=== PATIENT | female | born 1950 | race Caucasian/White ===

== ENCOUNTER 2020-07-02 13:11 | Inpatient (IN) ==
[2020-07-02] MEDS ORDERED: Prochlorperazine 10 MG/2 ML VIAL IVP ONE (13:24)
[2020-07-02 13:41] LABS: Hemoglobin 10.5 g/dL (11.5-15.4)
[2020-07-02 13:43] LABS: Basophils % 0.4 %; Eosinophils % 0.7 %; Hematocrit 34.6 % (35.3-44.9); Immature Granulocytes % 0.7 % (0-4); Immature Platelets 5.6 % (1.1-6.1); Lymphocytes # 0.9 K/mcL (0.6-4.6); Lymphocytes % 16.4 %; Mean Corpuscular HGB Conc 30.3 g/dL (31.6-35.5); Mean Corpuscular Hemoglobin 34.9 pg (28.0-33.3); Mean Platelet Volume 11.2 fL (9.4-12.4); Monocytes # 0.4 K/mcL (0.0-1.3); Monocytes % 6.3 %; Neutrophils # 4.2 K/mcL (1.6-8.9); Red Blood Count 3.01 M/mcL (3.82-4.97); Red Cell Distribution Width 15.6 % (11.5-14.5); Segmented Neutrophils % 75.5 %; White Blood Count 5.6 K/mcL (4.3-11.1)
[2020-07-02 13:54] LABS: INR 1.7; Prothrombin Time 19.2 Seconds (9.4-12.1)
[2020-07-02 14:03] LABS: Platelet Count 63 K/mcL (140-400)
[2020-07-02 14:09] LABS: Macrocytosis Present (Not Present); Platelet Estimate Decreased (Normal)
[2020-07-02 14:15] LABS: Alanine Aminotransferase 19 Units/L (7-52); Albumin 3.7 g/dL (3.5-5.7); Albumin/Globulin Ratio 1.3 (1.1-2.2); Alkaline Phosphatase 178 Units/L (34-104); BUN/Creatinine Ratio 21 (6-26); Bilirubin,Total 0.4 mg/dL (0.3-1.0); Blood Urea Nitrogen 29 mg/dL (8-23); Calcium 9.1 mg/dL (8.6-10.3); Carbon Dioxide 27 mEq/L (23-29); Chloride 103 mEq/L (98-107); Globulin 2.9 g/dL (2.4-3.5); Glucose 87 mg/dL (70-105); Osmolality,Calculated 291 (280-300); Potassium 4.3 mEq/L (3.5-5.1); Sodium 138 mEq/L (136-145); Total Protein 6.6 g/dL (6.4-8.9); Troponin I < 0.03 ng/mL (< 0.04); eGFR For African Americans 47 (> 60); eGFR For Non-African Americans 38 (> 60)
[2020-07-02 14:35] LABS: Aspartate Amino Transferase 24 Units/L (13-39)
[2020-07-02] MEDS ORDERED: *HR* Dextrose 50 % in Water (Vial) 50 ML VIAL IVP PRN (16:25)
[2020-07-02] MEDS ORDERED: Naloxone 0.4 MG/ML INJ IVP PRN (16:25)
[2020-07-02] MEDS ORDERED: Acetaminophen 325 MG TABLET PO PRN (16:25)
[2020-07-02] MEDS ORDERED: Dextrose Gel 15 GM/37.5 ML TUBE PO PRN ×2 (16:25)
[2020-07-02] MEDS ORDERED: D5% in Water 1,000 ML IVC PRN (16:25)
[2020-07-02] MEDS: Insulin LISPRO 300 UNITS/3 ML VIAL SQ SCH ×2 (18:40→20:19)
[2020-07-03 06:04] LABS: Red Cell Distribution Width 15.7 % (11.5-14.5)
[2020-07-03 06:06] LABS: Hematocrit 31.5 % (35.3-44.9); Hemoglobin 9.5 g/dL (11.5-15.4); Immature Platelets 4.4 % (1.1-6.1); Mean Corpuscular HGB Conc 30.2 g/dL (31.6-35.5); Mean Corpuscular Hemoglobin 34.7 pg (28.0-33.3); Mean Platelet Volume 11.2 fL (9.4-12.4); Red Blood Count 2.74 M/mcL (3.82-4.97); White Blood Count 5.2 K/mcL (4.3-11.1)
[2020-07-03 06:27] LABS: Albumin 3.2 g/dL (3.5-5.7); Albumin/Globulin Ratio 1.3 (1.1-2.2); Bilirubin,Total 0.3 mg/dL (0.3-1.0); Calcium 8.6 mg/dL (8.6-10.3); Globulin 2.4 g/dL (2.4-3.5); Potassium 4.4 mEq/L (3.5-5.1); Total Protein 5.6 g/dL (6.4-8.9)
[2020-07-03] MEDS ORDERED: *HR* OxyCODONE/APAP 10/325 TABLET PO PRN (07:21)
[2020-07-03] MEDS ORDERED: Ondansetron ODT 4 MG TAB.RAPDIS PO PRN (07:21)
[2020-07-03] MEDS: allopurinoL 300 MG TABLET PO SCH (09:32)
[2020-07-03] MEDS: Ascorbic Acid 500 MG TABLET PO SCH ×2 (09:32→20:10)
[2020-07-03] MEDS: *HR* Digoxin 0.125 MG TABLET PO SCH (09:32)
[2020-07-03] MEDS: Cyanocobalamin (B-12) 1,000 MCG TABLET PO SCH (09:33)
[2020-07-03] MEDS: Magnesium Oxide 400 MG TABLET PO SCH ×2 (09:33→20:10)
[2020-07-03] MEDS: Gabapentin 100 MG CAPSULE PO SCH ×2 (09:33→20:10)
[2020-07-03] MEDS: Metoprolol XL (24 HR) Succ 25 MG TAB.ER.24H PO SCH (09:33)
[2020-07-03] MEDS: Furosemide 20 MG TABLET PO SCH (09:33)
[2020-07-03] MEDS: Insulin LISPRO 300 UNITS/3 ML VIAL SQ SCH ×4 (09:33→20:50)
[2020-07-03] MEDS: IXAZOMIB CITRATE 2.3 MG PO SCH (09:34)
[2020-07-03] MEDS: Prenatal Vit/FA 1 EACH TABLET PO SCH (09:34)
[2020-07-03] MEDS ORDERED: Aminoglycoside Consult 1 EACH MC ONE (13:32)
[2020-07-03] MEDS: predniSONE 20 MG TABLET PO SCH (16:10)
[2020-07-03] MEDS ORDERED: *HR* Warfarin 5 MG TABLET PO ONE (18:00)
[2020-07-03] MEDS ORDERED: Warfarin perPT PO SCH (18:00)
[2020-07-03] MEDS ORDERED: Doxepin Hcl 10 MG PO SCH (21:00)
[2020-07-03] MEDS ORDERED: Insulin NPH/REG 70/30 100 UNIT/ML (x5UNIT) SQ SCH (21:00)
[2020-07-04 07:06] VITALS: BP 151/85
[2020-07-04] MEDS: predniSONE 20 MG TABLET PO SCH (07:44)
[2020-07-04] MEDS: Gabapentin 100 MG CAPSULE PO SCH (07:44)
[2020-07-04] MEDS: Furosemide 20 MG TABLET PO SCH (07:44)
[2020-07-04] MEDS: Prenatal Vit/FA 1 EACH TABLET PO SCH (07:44)
[2020-07-04] MEDS: Metoprolol XL (24 HR) Succ 25 MG TAB.ER.24H PO SCH (07:44)
[2020-07-04] MEDS: Ascorbic Acid 500 MG TABLET PO SCH (07:44)
[2020-07-04] MEDS: Magnesium Oxide 400 MG TABLET PO SCH (07:44)
[2020-07-04] MEDS: Cyanocobalamin (B-12) 1,000 MCG TABLET PO SCH (07:44)
[2020-07-04] MEDS: *HR* Digoxin 0.125 MG TABLET PO SCH (07:44)
[2020-07-04] MEDS: IXAZOMIB CITRATE 2.3 MG PO SCH (07:45)
[2020-07-04] MEDS: allopurinoL 300 MG TABLET PO SCH (07:45)
[2020-07-04] MEDS: Insulin LISPRO 300 UNITS/3 ML VIAL SQ SCH (07:45)
[2020-07-04] MEDS ORDERED: Insulin NPH/REG 70/30 100 UNIT/ML (x5UNIT) SQ SCH (09:00)
[2020-07-04 10:23] LABS: INR 1.4
[2020-07-04] MEDS ORDERED: *HR* Warfarin 5 MG TABLET PO ONE (18:00)
== END 2020-07-04 13:33 | disposition home or self-care (01) | DRG 103 ==
LOC: EMEROOARM 13:11 → 3BNU 13:11
PROVIDERS: ADMIT Family Medicine; ATTEND Family Medicine

== ENCOUNTER 2021-01-01 10:35 | Observation (INO) ==
[2021-01-01 11:24] LABS: Basophils # 0.1 K/mcL (0.0-0.2); Basophils % 0.6 %; Eosinophils % 0.3 %; Hematocrit 37.6 % (35.3-44.9); Hemoglobin 11.6 g/dL (11.5-15.4); Immature Granulocytes % 0.6 % (0-4); Lymphocytes % 8.1 %; Mean Corpuscular HGB Conc 30.9 g/dL (31.6-35.5); Mean Corpuscular Hemoglobin 34.5 pg (28.0-33.3); Mean Corpuscular Volume 111.9 fL (83.0-100.0); Mean Platelet Volume 10.7 fL (9.4-12.4); Monocytes # 0.7 K/mcL (0.0-1.3); Monocytes % 7.1 %; Neutrophils # 8.7 K/mcL (1.6-8.9); Platelet Count 102 K/mcL (140-400); Red Blood Count 3.36 M/mcL (3.82-4.97); Red Cell Distribution Width 14.3 % (11.5-14.5); Segmented Neutrophils % 83.3 %; White Blood Count 10.4 K/mcL (4.3-11.1)
[2021-01-01 11:34] LABS: INR 1.7; Prothrombin Time 19.6 Seconds (9.4-12.1)
[2021-01-01 11:48] LABS: BUN/Creatinine Ratio 19 (6-26); Blood Urea Nitrogen 22 mg/dL (8-23); Calcium 9.4 mg/dL (8.6-10.3); Carbon Dioxide 29 mEq/L (23-29); Chloride 98 mEq/L (98-107); Glucose 122 mg/dL (70-105); Osmolality,Calculated 287 (280-300); Sodium 136 mEq/L (136-145); Troponin I < 0.03 ng/mL (< 0.04); eGFR For African Americans 55 (> 60); eGFR For Non-African Americans 45 (> 60)
[2021-01-01 11:50] LABS: Lymphocytes # 0.8 K/mcL (0.6-4.6)
[2021-01-01 11:53] LABS: Macrocytosis Present (Not Present); Platelet Estimate Slight Decrease (Normal)
[2021-01-01 15:32] LABS: Creatine Kinase 46 Units/L (30-223)
[2021-01-01 16:09] LABS: Bacteria,Urine Few per hpf (None-Few); Bilirubin,Urine Negative (Negative); Blood,Urine Negative (Negative); Clarity,Urine Turbid (Clear); Color,Urine Yellow (Yellow); Glucose,Urine (UA) Normal (Normal); Ketones,Urine Negative (Negative); Leukocyte Esterase,Urine Large (Negative); Nitrite,Urine Negative (Negative); Protein,Urine Negative (Neg-Trace); RBC,Urine 0-3 per hpf (0-3); Specific Gravity,Urine 1.014 (1.010-1.025); Squamous Epithelial Cell,Urine Few per hpf (None-Few); WBC,Urine 50-100 per hpf (0-3)
[2021-01-01] MEDS ORDERED: *HR* OxyCODONE Immed Rel 5 MG TABLET PO PRN (17:41)
[2021-01-01] MEDS ORDERED: Naloxone 0.4 MG/ML INJ IVP PRN (17:41)
[2021-01-01] MEDS ORDERED: MOM Conc 10 ML UD.LIQ PO PRN (17:41)
[2021-01-01] MEDS ORDERED: Mag Hydrox/Al Hydrox/Simeth 30 ML UDC PO PRN (17:41)
[2021-01-01] MEDS ORDERED: Ondansetron ODT 4 MG TAB.RAPDIS SL PRN (17:41)
[2021-01-01] MEDS ORDERED: Acetaminophen 325 MG TABLET PO PRN (17:41)
[2021-01-01] MEDS ORDERED: *HR* Dextrose 50 % in Water (Vial) 50 ML VIAL IVP PRN (18:34)
[2021-01-01] MEDS ORDERED: D5% in Water 1,000 ML IVC PRN (18:34)
[2021-01-01] MEDS ORDERED: Dextrose Gel 15 GM/37.5 ML TUBE PO PRN ×2 (18:34)
[2021-01-01] MEDS ORDERED: *HR* Warfarin 5 MG TABLET PO ONE (19:00)
[2021-01-01] MEDS ORDERED: cefTRIAXone 1,000 MG in Water for inj. (sterile) 10 ML IVP SCH (19:00)
[2021-01-01] MEDS ORDERED: Insulin LISPRO 300 UNITS/3 ML VIAL SUBQ SCH (21:00)
[2021-01-02 03:18] LABS: Hemoglobin 10.7 g/dL (11.5-15.4); Immature Granulocytes % 0.5 % (0-4)
[2021-01-02 03:19] LABS: INR 1.6; Prothrombin Time 18.3 Seconds (9.4-12.1)
[2021-01-02 03:20] LABS: Basophils % 0.5 %; Eosinophils % 0.5 %; Hematocrit 34.3 % (35.3-44.9); Lymphocytes # 0.9 K/mcL (0.6-4.6); Lymphocytes % 11.2 %; Mean Corpuscular HGB Conc 31.2 g/dL (31.6-35.5); Mean Corpuscular Hemoglobin 35.2 pg (28.0-33.3); Mean Corpuscular Volume 112.8 fL (83.0-100.0); Mean Platelet Volume 10.5 fL (9.4-12.4); Monocytes # 0.6 K/mcL (0.0-1.3); Monocytes % 7.2 %; Neutrophils # 6.4 K/mcL (1.6-8.9); Platelet Count 104 K/mcL (140-400); Red Blood Count 3.04 M/mcL (3.82-4.97); Red Cell Distribution Width 14.3 % (11.5-14.5); Segmented Neutrophils % 80.1 %
[2021-01-02 03:37] LABS: Calcium 8.7 mg/dL (8.6-10.3); Potassium 4.1 mEq/L (3.5-5.1)
[2021-01-02] MEDS ORDERED: Insulin LISPRO 300 UNITS/3 ML VIAL SUBQ SCH (07:30)
[2021-01-02 08:05] VITALS: BP 137/91
[2021-01-02] MEDS ORDERED: Warfarin perPT PO PRN (18:00)
[2021-01-02] MEDS ORDERED: *HR* Warfarin 7.5 MG TABLET PO ONE (18:00)
== END 2021-01-02 10:48 | disposition home health service (06) ==
LOC: EMEROOARM 10:35 → 3ANU 10:35 → SUATTDRO 17:38 → 3ANU 18:30
PROVIDERS: ADMIT Family Medicine; ATTEND Family Medicine

== ENCOUNTER 2021-02-03 10:30 | Inpatient (IN) ==
[2021-02-03] MEDS ORDERED: Gadolinium Contrast Agent (WT Based) IV PRN (11:17)
[2021-02-03] MEDS ORDERED: Ondansetron 4 MG/2 ML VIAL IVP ONE (11:21)
[2021-02-03] MEDS ORDERED: Morphine Sulfate 2 MG/ML SYRINGE IVP ONE (11:21)
[2021-02-03 12:08] LABS: Basophils % 0.3 %; Immature Granulocytes % 0.5 % (0-4)
[2021-02-03 12:09] LABS: Eosinophils % 0.1 %; Hematocrit 31.6 % (35.3-44.9); Immature Platelets 3.6 % (1.1-6.1); Lymphocytes # 0.7 K/mcL (0.6-4.6); Lymphocytes % 8.5 %; Mean Corpuscular HGB Conc 31.6 g/dL (31.6-35.5); Mean Corpuscular Hemoglobin 35.5 pg (28.0-33.3); Mean Corpuscular Volume 112.1 fL (83.0-100.0); Monocytes # 0.6 K/mcL (0.0-1.3); Monocytes % 6.8 %; Neutrophils # 7.3 K/mcL (1.6-8.9); Platelet Count 66 K/mcL (140-400); Red Blood Count 2.82 M/mcL (3.82-4.97); Red Cell Distribution Width 15.7 % (11.5-14.5); Segmented Neutrophils % 83.8 %; White Blood Count 8.7 K/mcL (4.3-11.1)
[2021-02-03 12:20] LABS: INR 2.1; Prothrombin Time 23.6 Seconds (9.4-12.1)
[2021-02-03 12:26] LABS: BUN/Creatinine Ratio 25 (6-26); Blood Urea Nitrogen 26 mg/dL (8-23); Carbon Dioxide 31 mEq/L (23-29); Chloride 101 mEq/L (98-107); Glucose 78 mg/dL (70-105); Magnesium 1.6 mg/dL (1.6-2.6); Osmolality,Calculated 290 (280-300); Sodium 138 mEq/L (136-145); eGFR For African Americans > 60 (> 60); eGFR For Non-African Americans 52 (> 60)
[2021-02-03 12:43] LABS: Macrocytosis Present (Not Present); Platelet Estimate Decreased (Normal); Toxic Granulation Present (Not Present)
[2021-02-03] MEDS ORDERED: D5% in Water 1,000 ML IVC PRN (19:35)
[2021-02-03] MEDS ORDERED: Dextrose Gel 15 GM/37.5 ML TUBE PO PRN ×2 (19:35)
[2021-02-03] MEDS ORDERED: *HR* Dextrose 50 % in Water (Vial) 50 ML VIAL IVP PRN (19:35)
[2021-02-03] MEDS ORDERED: Melatonin 3 MG TABLET PO PRN (19:38)
[2021-02-03] MEDS ORDERED: Naloxone 0.4 MG/ML INJ IVP PRN (19:38)
[2021-02-03] MEDS ORDERED: Ondansetron 4 MG/2 ML VIAL IVP PRN (19:38)
[2021-02-03] MEDS ORDERED: Acetaminophen 325 MG TABLET PO PRN (19:38)
[2021-02-03] MEDS ORDERED: (Diclofenac Sodium [Voltaren] 100 GM Gel..Gram.) TP PRN (20:21)
[2021-02-03] MEDS ORDERED: (Doxepin Hcl 10 MG Capsule) PO PRN (20:40)
[2021-02-03 20:59] LABS: Immature Granulocytes % 0.4 % (0-4); Lymphocytes % 7.9 %; Mean Corpuscular Volume 112.2 fL (83.0-100.0)
[2021-02-03 21:01] LABS: Basophils % 0.4 %; Eosinophils % 0.1 %; Hematocrit 32.1 % (35.3-44.9); Lymphocytes # 0.6 K/mcL (0.6-4.6); Mean Corpuscular HGB Conc 31.2 g/dL (31.6-35.5); Mean Platelet Volume 10.9 fL (9.4-12.4); Monocytes # 0.5 K/mcL (0.0-1.3); Monocytes % 7.1 %; Red Blood Count 2.86 M/mcL (3.82-4.97); Red Cell Distribution Width 15.7 % (11.5-14.5); Segmented Neutrophils % 84.1 %; White Blood Count 7.2 K/mcL (4.3-11.1)
[2021-02-03] MEDS: Acyclovir 200 MG CAPSULE PO SCH (21:14)
[2021-02-03] MEDS: Gabapentin 100 MG CAPSULE PO SCH (21:14)
[2021-02-03] MEDS: Ascorbic Acid 500 MG TABLET PO SCH (21:15)
[2021-02-03] MEDS: (Glucosamine Sulfate Dipot Chlr [Glucosamine] 1,000 M PO SCH (21:15)
[2021-02-03] MEDS: *HR* OxyCODONE Immed Rel 5 MG TABLET PO PRN (21:18)
[2021-02-03] MEDS: Insulin LISPRO 300 UNITS/3 ML VIAL SUBQ SCH (21:18)
[2021-02-03] MEDS ORDERED: *HR* Warfarin 5 MG TABLET PO ONE (21:28)
[2021-02-03] MEDS ORDERED: Warfarin perPT PO PRN (21:29)
[2021-02-03 21:41] LABS: Thyroid Stimulating Hormone 2.196 mcIU/mL (0.340-5.600)
[2021-02-03 22:03] LABS: Neutrophils # 6.1 K/mcL (1.6-8.9); Platelet Count 65 K/mcL (140-400)
[2021-02-03 22:05] LABS: Anisocytosis 1+ (Not Present); Macrocytosis Present (Not Present)
[2021-02-03 22:09] LABS: Platelet Estimate Decreased (Normal)
[2021-02-03 22:10] LABS: Polychromasia 1+ (Not Present)
[2021-02-04 01:27] LABS: INR 1.7; Prothrombin Time 19.5 Seconds (9.4-12.1)
[2021-02-04 01:39] LABS: Alanine Aminotransferase 23 Units/L (7-52); Albumin 2.9 g/dL (3.5-5.7); Albumin/Globulin Ratio 1.1 (1.1-2.2); Alkaline Phosphatase 159 Units/L (34-104); Aspartate Amino Transferase 23 Units/L (13-39); BUN/Creatinine Ratio 21 (6-26); Bilirubin,Total 0.6 mg/dL (0.3-1.0); Blood Urea Nitrogen 22 mg/dL (8-23); Calcium 8.9 mg/dL (8.6-10.3); Carbon Dioxide 30 mEq/L (23-29); Chloride 99 mEq/L (98-107); Globulin 2.6 g/dL (2.4-3.5); Glucose 294 mg/dL (70-105); Osmolality,Calculated 296 (280-300); Potassium 4.3 mEq/L (3.5-5.1); Sodium 136 mEq/L (136-145); Total Protein 5.5 g/dL (6.4-8.9); eGFR For African Americans > 60 (> 60); eGFR For Non-African Americans 51 (> 60)
[2021-02-04] MEDS: Gabapentin 100 MG CAPSULE PO SCH ×3 (03:18→19:58)
[2021-02-04] MEDS: *HR* HYDROcodone/Acet 5/325 mg TABLET PO PRN ×2 (03:18→10:54)
[2021-02-04] MEDS: *HR* OxyCODONE Immed Rel 5 MG TABLET PO PRN ×2 (05:50→19:57)
[2021-02-04] MEDS: *HR* Digoxin 0.125 MG TABLET PO SCH (08:04)
[2021-02-04] MEDS: Prenatal Vit/FA 1 EACH TABLET PO SCH (08:04)
[2021-02-04] MEDS: Magnesium Oxide 400 MG TABLET PO SCH (08:04)
[2021-02-04] MEDS: (Glucosamine Sulfate Dipot Chlr [Glucosamine] 1,000 M PO SCH ×2 (08:05→20:10)
[2021-02-04] MEDS: Furosemide 20 MG TABLET PO SCH (08:05)
[2021-02-04] MEDS: Metoprolol XL (24 HR) Succ 25 MG TAB.ER.24H PO SCH (08:05)
[2021-02-04] MEDS: Cyanocobalamin (B-12) 1,000 MCG TABLET PO SCH (08:05)
[2021-02-04] MEDS: Ascorbic Acid 500 MG TABLET PO SCH ×3 (08:05→17:04)
[2021-02-04] MEDS: Acyclovir 200 MG CAPSULE PO SCH ×2 (08:05→19:57)
[2021-02-04] MEDS: allopurinoL 300 MG TABLET PO SCH (08:05)
[2021-02-04] MEDS: Cholecalciferol (D-3) 1,000 UNIT (25MCG) TABLET PO SCH (08:05)
[2021-02-04] MEDS: Insulin LISPRO 300 UNITS/3 ML VIAL SUBQ SCH ×4 (08:06→20:04)
[2021-02-04] MEDS: MethylPREDNISolone 40 MG/ML VIAL IVP SCH (17:04)
[2021-02-04] MEDS ORDERED: *HR* Warfarin 3 MG TABLET PO ONE (18:00)
[2021-02-04] MEDS ORDERED: Insulin DETEMIR 100 UNIT/ML X5UNITS SUBQ SCH (21:00)
[2021-02-05 04:44] LABS: INR 1.9; Prothrombin Time 21.3 Seconds (9.4-12.1)
[2021-02-05 05:03] LABS: Calcium 8.5 mg/dL (8.6-10.3); Magnesium 1.9 mg/dL (1.6-2.6); Potassium 4.5 mEq/L (3.5-5.1)
[2021-02-05 05:14] LABS: Basophils % 0.3 %; Hematocrit 30.7 % (35.3-44.9); Hemoglobin 9.5 g/dL (11.5-15.4); Immature Granulocytes % 0.6 % (0-4); Lymphocytes # 0.4 K/mcL (0.6-4.6); Lymphocytes % 6.8 %; Mean Corpuscular HGB Conc 30.9 g/dL (31.6-35.5); Mean Corpuscular Hemoglobin 35.2 pg (28.0-33.3); Mean Corpuscular Volume 113.7 fL (83.0-100.0); Mean Platelet Volume 11.6 fL (9.4-12.4); Monocytes # 0.3 K/mcL (0.0-1.3); Monocytes % 4.1 %; Neutrophils # 5.6 K/mcL (1.6-8.9); Red Cell Distribution Width 15.2 % (11.5-14.5); Segmented Neutrophils % 88.2 %; White Blood Count 6.3 K/mcL (4.3-11.1)
[2021-02-05] MEDS: Gabapentin 100 MG CAPSULE PO SCH ×3 (05:15→19:33)
[2021-02-05 05:16] LABS: Platelet Count 53 K/mcL (140-400); Platelet Estimate Decreased (Normal)
[2021-02-05 05:17] LABS: Anisocytosis 1+ (Not Present); Macrocytosis Present (Not Present)
[2021-02-05] MEDS: MethylPREDNISolone 40 MG/ML VIAL IVP SCH ×2 (05:37→16:55)
[2021-02-05] MEDS: Insulin LISPRO 300 UNITS/3 ML VIAL SUBQ SCH ×8 (05:37→19:33)
[2021-02-05] MEDS: Prenatal Vit/FA 1 EACH TABLET PO SCH (07:50)
[2021-02-05] MEDS: allopurinoL 300 MG TABLET PO SCH (07:50)
[2021-02-05] MEDS: Ascorbic Acid 500 MG TABLET PO SCH ×3 (07:51→16:55)
[2021-02-05] MEDS: Metoprolol XL (24 HR) Succ 25 MG TAB.ER.24H PO SCH (07:51)
[2021-02-05] MEDS: Magnesium Oxide 400 MG TABLET PO SCH (07:51)
[2021-02-05] MEDS: Furosemide 20 MG TABLET PO SCH (07:51)
[2021-02-05] MEDS: Cyanocobalamin (B-12) 1,000 MCG TABLET PO SCH (07:51)
[2021-02-05] MEDS: Cholecalciferol (D-3) 1,000 UNIT (25MCG) TABLET PO SCH (07:51)
[2021-02-05] MEDS: Acyclovir 200 MG CAPSULE PO SCH ×2 (07:51→19:33)
[2021-02-05] MEDS: *HR* Digoxin 0.125 MG TABLET PO SCH (07:51)
[2021-02-05] MEDS: (Glucosamine Sulfate Dipot Chlr [Glucosamine] 1,000 M PO SCH ×2 (09:17→19:48)
[2021-02-05] MEDS: Insulin DETEMIR 100 UNIT/ML X5UNITS SUBQ SCH ×2 (09:17→20:34)
[2021-02-05] MEDS ORDERED: *HR* Warfarin 5 MG TABLET PO ONE (18:00)
[2021-02-06] MEDS: Gabapentin 100 MG CAPSULE PO SCH ×2 (03:17→12:25)
[2021-02-06 04:30] LABS: Hematocrit 30.6 % (35.3-44.9); Hemoglobin 9.7 g/dL (11.5-15.4)
[2021-02-06 04:40] LABS: INR 3.2; Prothrombin Time 35.8 Seconds (9.4-12.1)
[2021-02-06 04:49] LABS: Calcium 8.6 mg/dL (8.6-10.3); Magnesium 2.1 mg/dL (1.6-2.6); Potassium 3.8 mEq/L (3.5-5.1)
[2021-02-06] MEDS: MethylPREDNISolone 40 MG/ML VIAL IVP SCH (05:31)
[2021-02-06] MEDS: *HR* Digoxin 0.125 MG TABLET PO SCH (08:14)
[2021-02-06] MEDS: Furosemide 20 MG TABLET PO SCH (08:14)
[2021-02-06] MEDS: Prenatal Vit/FA 1 EACH TABLET PO SCH (08:14)
[2021-02-06] MEDS: Acyclovir 200 MG CAPSULE PO SCH (08:15)
[2021-02-06] MEDS: Ascorbic Acid 500 MG TABLET PO SCH ×2 (08:15→12:26)
[2021-02-06] MEDS: Cholecalciferol (D-3) 1,000 UNIT (25MCG) TABLET PO SCH (08:15)
[2021-02-06] MEDS: allopurinoL 300 MG TABLET PO SCH (08:15)
[2021-02-06] MEDS: Metoprolol XL (24 HR) Succ 25 MG TAB.ER.24H PO SCH (08:16)
[2021-02-06] MEDS: Cyanocobalamin (B-12) 1,000 MCG TABLET PO SCH (08:16)
[2021-02-06] MEDS: Magnesium Oxide 400 MG TABLET PO SCH (08:17)
[2021-02-06] MEDS: Insulin LISPRO 300 UNITS/3 ML VIAL SUBQ SCH ×4 (08:22→12:27)
[2021-02-06] MEDS ORDERED: Insulin DETEMIR 100 UNIT/ML X5UNITS SUBQ SCH (09:00)
[2021-02-06 11:14] VITALS: BP 129/88
[2021-02-06] MEDS: (Glucosamine Sulfate Dipot Chlr [Glucosamine] 1,000 M PO SCH (12:20)
[2021-02-06 15:35] LABS: INR 3.5; Prothrombin Time 38.8 Seconds (9.4-12.1)
[2021-02-06] MEDS ORDERED: predniSONE 20 MG TABLET PO SCH (18:00)
== END 2021-02-06 15:00 | disposition home health service (06) | DRG 552 ==
LOC: 3NENU 10:30 → EMEROOARM 10:30 → SUATTDRO 18:30 → 3NENU 18:49
PROVIDERS: ADMIT Internal Medicine; ATTEND Internal Medicine

== ENCOUNTER 2021-11-07 21:34 | Inpatient (IN) ==
[2021-11-08 01:45] LABS: Hemoglobin 11.5 g/dL (11.5-15.4)
[2021-11-08 01:47] LABS: Eosinophils # 0.1 K/mcL (0.0-0.6); Hematocrit 36.1 % (35.3-44.9); Immature Platelets 7.3 % (1.1-6.1); Lymphocytes # 0.3 K/mcL (0.6-4.6); Mean Corpuscular HGB Conc 31.9 g/dL (31.6-35.5); Mean Corpuscular Hemoglobin 34.3 pg (28.0-33.3); Mean Corpuscular Volume 107.8 fL (83.0-100.0); Red Blood Count 3.35 M/mcL (3.82-4.97); Red Cell Distribution Width 15.4 % (11.5-14.5); White Blood Count 2.9 K/mcL (4.3-11.1)
[2021-11-08 02:21] LABS: Platelet Count 38 K/mcL (140-400)
[2021-11-08 02:30] LABS: Anisocytosis 1+ (Not Present); Monocytes # 0.3 K/mcL (0.0-1.3); Neutrophils # 2.2 K/mcL (1.6-8.9); Toxic Granulation Present (Not Present)
[2021-11-08 02:31] LABS: Platelet Estimate Marked Decrease (Normal)
[2021-11-08 02:58] LABS: Activated Partial Thrombo Time 81.5 Seconds (26.0-36.0)
[2021-11-08 03:07] LABS: Albumin 2.7 g/dL (3.5-5.7); Bilirubin,Direct 0.1 mg/dL (0.0-0.2); Bilirubin,Indirect 0.4 mg/dL (0.0-1.0); Bilirubin,Total 0.5 mg/dL (0.3-1.0); Calcium 7.9 mg/dL (8.6-10.3); Globulin 2.8 g/dL (2.4-3.5); Potassium 4.1 mEq/L (3.5-5.1); Total Protein 5.5 g/dL (6.4-8.9)
[2021-11-08 03:18] LABS: INR 25.8; Prothrombin Time 279.7 Seconds (9.4-12.1)
[2021-11-08] MEDS ORDERED: 0.9 % Sodium Chloride 500 ML IVC ONE (03:56)
[2021-11-08] MEDS ORDERED: *HR* HYDROcodone/Acet 5/325 mg TABLET PO PRN (04:47)
[2021-11-08] MEDS ORDERED: Ondansetron 4 MG/2 ML VIAL IVP PRN (04:47)
[2021-11-08] MEDS ORDERED: Acetaminophen 325 MG TABLET PO PRN (04:47)
[2021-11-08] MEDS ORDERED: Melatonin 3 MG TABLET PO PRN (04:47)
[2021-11-08] MEDS ORDERED: *HR* Promethazine 25 MG/ML VIAL IM PRN (04:47)
[2021-11-08] MEDS ORDERED: Naloxone 0.4 MG/ML INJ IVP PRN (04:47)
[2021-11-08] MEDS ORDERED: Ipratropium/Albuterol Neb 3 ML IH PRN (05:08)
[2021-11-08] MEDS ORDERED: Ringers Solution, Lactated 500 ML IVC ONE (05:15)
[2021-11-08] MEDS ORDERED: Dextrose Gel 15 GM/37.5 ML TUBE PO PRN ×2 (05:31)
[2021-11-08] MEDS ORDERED: D5% in Water 1,000 ML IVC PRN (05:31)
[2021-11-08] MEDS ORDERED: *HR* Dextrose 50 % in Water (Syg) 50 ML SYRINGE IVP PRN (05:31)
[2021-11-08] MEDS: Azithromycin 500 MG in 0.9 % Sodium Chloride 250 ML IVPB SCH (05:47)
[2021-11-08] MEDS ORDERED: 0.9 % Sodium Chloride 250 ML ONE (06:53)
[2021-11-08 07:39] LABS: SARS-CoV-2 DETECTED (Not Detect)
[2021-11-08 07:40] LABS: Adenovirus Not Detected (Not Detect); Bordetella Pertussis Not Detected (Not Detect); Chlamydophila pneumoniae Not Detected (Not Detect); Coronavirus 229E Not Detected (Not Detect); Coronavirus HKU1 Not Detected (Not Detect); Coronavirus NL63 Not Detected (Not Detect); Coronavirus OC43 Not Detected (Not Detect); Human Metapneumovirus Not Detected (Not Detect); Human Rhinovirus/Enterovirus Not Detected (Not Detect); Influenza A Subtype 2009 H1 Not Detected (Not Detect); Influenza B Not Detected (Not Detect); Mycoplasma pneumoniae Not Detected (Not Detect); Parainfluenza Virus 1 Not Detected (Not Detect); Parainfluenza Virus 2 Not Detected (Not Detect); Parainfluenza Virus 3 Not Detected (Not Detect); Parainfluenza Virus 4 Not Detected (Not Detect); Respiratory Syncytial Virus Not Detected (Not Detect)
[2021-11-08] MEDS: Insulin LISPRO 300 UNITS/3 ML VIAL SUBQ SCH ×3 (09:06→18:36)
[2021-11-08] MEDS: Cefepime HCl 1,000 MG in Water for inj. (sterile) 10 ML IVP SCH ×2 (09:34→14:59)
[2021-11-08 09:52] LABS: Bacteria,Urine Moderate per hpf (None-Few); Bilirubin,Urine Negative (Negative); Blood,Urine Large (Negative); Clarity,Urine Clear (Clear); Color,Urine Light-Yellow (Yellow); Glucose,Urine (UA) Normal (Normal); Ketones,Urine Negative (Negative); Leukocyte Esterase,Urine Negative (Negative); Nitrite,Urine Negative (Negative); Protein,Urine Negative (Neg-Trace); RBC,Urine 0-3 per hpf (0-3); Specific Gravity,Urine 1.008 (1.010-1.025); Squamous Epithelial Cell,Urine Few per hpf (None-Few); Urobilinogen,Urine Normal (Normal); WBC,Urine 0-3 per hpf (0-3)
[2021-11-08] MEDS ORDERED: DOXEPIN HCL 10 MG PO PRN (17:22)
[2021-11-08] MEDS ORDERED: Ondansetron ODT 4 MG TAB.RAPDIS PO PRN (17:22)
[2021-11-08] MEDS ORDERED: *HR* OxyCODONE/APAP 10/325 TABLET PO PRN (17:22)
[2021-11-08 20:30] LABS: White Blood Count 3.3 K/mcL (4.3-11.1)
[2021-11-08 20:31] LABS: Basophils % 0.3 %; Eosinophils # 0.1 K/mcL (0.0-0.6); Eosinophils % 1.8 %; Hematocrit 25.4 % (35.3-44.9); Hemoglobin 8.3 g/dL (11.5-15.4); Immature Granulocytes % 1.5 % (0-4); Lymphocytes # 0.2 K/mcL (0.6-4.6); Lymphocytes % 6.1 %; Mean Corpuscular HGB Conc 32.7 g/dL (31.6-35.5); Mean Corpuscular Hemoglobin 35.5 pg (28.0-33.3); Mean Corpuscular Volume 108.5 fL (83.0-100.0); Mean Platelet Volume 11.9 fL (9.4-12.4); Monocytes # 0.2 K/mcL (0.0-1.3); Monocytes % 5.2 %; Neutrophils # 2.8 K/mcL (1.6-8.9); Red Blood Count 2.34 M/mcL (3.82-4.97); Red Cell Distribution Width 15.5 % (11.5-14.5); Segmented Neutrophils % 85.1 %
[2021-11-08 20:32] LABS: Platelet Count 45 K/mcL (140-400)
[2021-11-08 20:59] LABS: Dohle Bodies Present (Not Present); Polychromasia 1+ (Not Present)
[2021-11-08] MEDS ORDERED: Insulin LISPRO 300 UNITS/3 ML VIAL SUBQ SCH (21:00)
[2021-11-08] MEDS ORDERED: 0.9 % Sodium Chloride 250 ML IVC SCH (22:00)
[2021-11-08 22:39] LABS: INR 1.4; Prothrombin Time 15.4 Seconds (9.4-12.1)
[2021-11-09] MEDS: Cefepime HCl 1,000 MG in Water for inj. (sterile) 10 ML IVP SCH ×2 (02:11→08:14)
[2021-11-09] MEDS: Azithromycin 500 MG in 0.9 % Sodium Chloride 250 ML IVPB SCH (04:28)
[2021-11-09 04:48] LABS: Hemoglobin 8.4 g/dL (11.5-15.4); Immature Granulocytes % 1.1 % (0-4)
[2021-11-09 04:50] LABS: Basophils % 0.4 %; Eosinophils # 0.1 K/mcL (0.0-0.6); Eosinophils % 5.2 %; Hematocrit 26.7 % (35.3-44.9); Immature Platelets 3.8 % (1.1-6.1); Lymphocytes # 0.2 K/mcL (0.6-4.6); Lymphocytes % 5.6 %; Mean Corpuscular HGB Conc 31.5 g/dL (31.6-35.5); Mean Corpuscular Hemoglobin 34.3 pg (28.0-33.3); Mean Platelet Volume 10.7 fL (9.4-12.4); Monocytes # 0.1 K/mcL (0.0-1.3); Monocytes % 3.3 %; Neutrophils # 2.3 K/mcL (1.6-8.9); Red Blood Count 2.45 M/mcL (3.82-4.97); Red Cell Distribution Width 15.3 % (11.5-14.5); Segmented Neutrophils % 84.4 %; White Blood Count 2.7 K/mcL (4.3-11.1)
[2021-11-09 04:56] LABS: Platelet Count 56 K/mcL (140-400)
[2021-11-09 04:59] LABS: INR 1.3; Prothrombin Time 14.6 Seconds (9.4-12.1)
[2021-11-09 05:13] LABS: Anisocytosis 1+ (Not Present); Platelet Estimate Decreased (Normal); Toxic Granulation Present (Not Present)
[2021-11-09 05:14] LABS: Reactive Lymphocytes Present (Not Present)
[2021-11-09 05:34] LABS: BUN/Creatinine Ratio 26 (6-26); Blood Urea Nitrogen 25 mg/dL (8-23); Calcium 7.8 mg/dL (8.6-10.3); Carbon Dioxide 25 mEq/L (23-29); Chloride 100 mEq/L (98-107); Glucose 174 mg/dL (70-105); Osmolality,Calculated 289 (280-300); Sodium 135 mEq/L (136-145); eGFR For African Americans > 60 (> 60); eGFR For Non-African Americans 57 (> 60)
[2021-11-09] MEDS: Acyclovir 200 MG CAPSULE PO SCH (08:14)
[2021-11-09] MEDS: Furosemide 20 MG TABLET PO SCH (08:14)
[2021-11-09] MEDS: Magnesium Oxide 400 MG TABLET PO SCH (08:14)
[2021-11-09] MEDS: *HR* Digoxin 0.125 MG TABLET PO SCH (08:14)
[2021-11-09] MEDS: allopurinoL 300 MG TABLET PO SCH (08:14)
[2021-11-09] MEDS: Metoprolol XL (24 HR) Succ 25 MG TAB.ER.24H PO SCH (08:14)
[2021-11-09] MEDS: Gabapentin 300 MG CAPSULE PO SCH ×2 (08:18→21:57)
[2021-11-09] MEDS: Insulin LISPRO 300 UNITS/3 ML VIAL SUBQ SCH ×4 (08:18→21:58)
[2021-11-09] MEDS: Cefepime HCl 2,000 MG in 0.9 % Sodium Chloride Mini Bag 100 ML IVPB SCH (17:29)
[2021-11-09] MEDS: Insulin DETEMIR 100 UNIT/ML X5UNITS SUBQ SCH (21:58)
[2021-11-10 01:47] LABS: Hemoglobin 8.5 g/dL (11.5-15.4); Red Cell Distribution Width 15.3 % (11.5-14.5)
[2021-11-10 01:49] LABS: Basophils % 0.4 %; Eosinophils # 0.2 K/mcL (0.0-0.6); Eosinophils % 6.9 %; Hematocrit 27.3 % (35.3-44.9); Immature Granulocytes % 1.2 % (0-4); Immature Platelets 3.8 % (1.1-6.1); Lymphocytes # 0.3 K/mcL (0.6-4.6); Lymphocytes % 11.2 %; Mean Corpuscular HGB Conc 31.1 g/dL (31.6-35.5); Mean Corpuscular Hemoglobin 34.4 pg (28.0-33.3); Mean Corpuscular Volume 110.5 fL (83.0-100.0); Mean Platelet Volume 11.8 fL (9.4-12.4); Monocytes # 0.2 K/mcL (0.0-1.3); Monocytes % 6.9 %; Neutrophils # 1.9 K/mcL (1.6-8.9); Nucleated Red Blood Cells 0.8 /100 WBC (0); Red Blood Count 2.47 M/mcL (3.82-4.97); Segmented Neutrophils % 73.4 %; White Blood Count 2.6 K/mcL (4.3-11.1)
[2021-11-10 02:03] LABS: INR 1.3; Prothrombin Time 14.4 Seconds (9.4-12.1)
[2021-11-10 02:07] LABS: Platelet Count 55 K/mcL (140-400)
[2021-11-10 02:08] LABS: BUN/Creatinine Ratio 18 (6-26); Blood Urea Nitrogen 19 mg/dL (8-23); Carbon Dioxide 27 mEq/L (23-29); Chloride 102 mEq/L (98-107); Glucose 176 mg/dL (70-105); Osmolality,Calculated 289 (280-300); Platelet Estimate Decreased (Normal); Potassium 3.5 mEq/L (3.5-5.1); Sodium 136 mEq/L (136-145); eGFR For African Americans > 60 (> 60); eGFR For Non-African Americans 51 (> 60)
[2021-11-10] MEDS: Cefepime HCl 2,000 MG in 0.9 % Sodium Chloride Mini Bag 100 ML IVPB SCH (05:35)
[2021-11-10] MEDS: Azithromycin 500 MG in 0.9 % Sodium Chloride 250 ML IVPB SCH (05:36)
[2021-11-10] MEDS: Insulin LISPRO 300 UNITS/3 ML VIAL SUBQ SCH ×4 (07:36→20:26)
[2021-11-10] MEDS: Insulin DETEMIR 100 UNIT/ML X5UNITS SUBQ SCH ×2 (08:15→20:25)
[2021-11-10] MEDS: Acyclovir 200 MG CAPSULE PO SCH (08:21)
[2021-11-10] MEDS: Metoprolol XL (24 HR) Succ 25 MG TAB.ER.24H PO SCH (08:32)
[2021-11-10] MEDS: allopurinoL 300 MG TABLET PO SCH (08:33)
[2021-11-10] MEDS: *HR* Digoxin 0.125 MG TABLET PO SCH (08:33)
[2021-11-10] MEDS: Magnesium Oxide 400 MG TABLET PO SCH (08:33)
[2021-11-10] MEDS: Furosemide 20 MG TABLET PO SCH (08:33)
[2021-11-10] MEDS ORDERED: *HR* Warfarin 2.5 MG TABLET PO ONE (18:00)
[2021-11-10] MEDS ORDERED: Warfarin perPT PO PRN (18:00)
[2021-11-10] MEDS: Cefdinir 300 MG CAPSULE PO SCH (20:05)
[2021-11-10] MEDS: Gabapentin 300 MG CAPSULE PO SCH (20:05)
[2021-11-10 22:05] LABS: Adenovirus F 40/41 PCR Not detected (Not detect); Astrovirus PCR Not detected (Not detect); C.difficile Toxin A/B Gene PCR Not detected (Not detect); Campylobacter by PCR Not detected (Not detect); Cryptosporidium by PCR Not detected (Not detect); Cyclospora cayetanensis PCR Not detected (Not detect); E. coli O157 by PCR Not detected (Not detect); Entamoeba histolytica PCR Not detected (Not detect); Enteroaggregative E.coli(EAEC) Not detected (Not detect); Enteropathogenic E.coli(EPEC) Not detected (Not detect); Enterotoxigenic E.coli (ETEC) Not detected (Not detect); Giardia lamblia PCR Not detected (Not detect); Norovirus GI/GII PCR DETECTED (Not detect); Plesiomonas shigelloides PCR Not detected (Not detect); Rotavirus A PCR Not detected (Not detect); Salmonella PCR Not detected (Not detect); Sapovirus PCR Not detected (Not detect); Shig/EnteroinvasiveE coli EIEC Not detected (Not detect); Shigalike tox-prod E coli STEC Not detected (Not detect); Vibrio PCR Not detected (Not detect); Vibrio cholerae PCR Not detected (Not detect); Yersinia enterocolitica PCR Not detected (Not detect)
[2021-11-11 06:43] LABS: Eosinophils % 7.7 %; Hemoglobin 8.2 g/dL (11.5-15.4)
[2021-11-11 06:45] LABS: Basophils % 0.4 %; Eosinophils # 0.2 K/mcL (0.0-0.6); Immature Granulocytes % 0.8 % (0-4); Lymphocytes # 0.5 K/mcL (0.6-4.6); Lymphocytes % 18.1 %; Mean Corpuscular HGB Conc 31.5 g/dL (31.6-35.5); Mean Corpuscular Hemoglobin 34.3 pg (28.0-33.3); Mean Corpuscular Volume 108.8 fL (83.0-100.0); Mean Platelet Volume 10.6 fL (9.4-12.4); Monocytes # 0.2 K/mcL (0.0-1.3); Monocytes % 9.7 %; Neutrophils # 1.6 K/mcL (1.6-8.9); Red Blood Count 2.39 M/mcL (3.82-4.97); Segmented Neutrophils % 63.3 %; White Blood Count 2.5 K/mcL (4.3-11.1)
[2021-11-11 07:04] LABS: BUN/Creatinine Ratio 15 (6-26); Blood Urea Nitrogen 15 mg/dL (8-23); Calcium 8.2 mg/dL (8.6-10.3); Carbon Dioxide 29 mEq/L (23-29); Chloride 102 mEq/L (98-107); Glucose 158 mg/dL (70-105); Osmolality,Calculated 288 (280-300); Potassium 3.6 mEq/L (3.5-5.1); Sodium 137 mEq/L (136-145); eGFR For African Americans > 60 (> 60); eGFR For Non-African Americans 57 (> 60)
[2021-11-11 07:06] LABS: Platelet Count 59 K/mcL (140-400)
[2021-11-11 07:15] VITALS: BP 144/59; PULSE 63; TEMP 98.2; O2SAT 92
[2021-11-11 07:21] LABS: INR 1.4; Prothrombin Time 15.7 Seconds (9.4-12.1)
[2021-11-11] MEDS: *HR* Digoxin 0.125 MG TABLET PO SCH (07:50)
[2021-11-11] MEDS: allopurinoL 300 MG TABLET PO SCH (07:50)
[2021-11-11] MEDS: Metoprolol XL (24 HR) Succ 25 MG TAB.ER.24H PO SCH (07:50)
[2021-11-11] MEDS: Furosemide 20 MG TABLET PO SCH (07:50)
[2021-11-11] MEDS: Magnesium Oxide 400 MG TABLET PO SCH (07:50)
[2021-11-11] MEDS: Acyclovir 200 MG CAPSULE PO SCH (07:51)
[2021-11-11] MEDS: Cefdinir 300 MG CAPSULE PO SCH (07:51)
[2021-11-11] MEDS: Insulin LISPRO 300 UNITS/3 ML VIAL SUBQ SCH ×2 (08:01→10:24)
[2021-11-11] MEDS ORDERED: Lactobacillus 1 EACH CAP.SPRINK PO SCH (09:00)
[2021-11-11] MEDS ORDERED: Azithromycin 250 MG TABLET PO SCH (09:00)
[2021-11-11] MEDS: Insulin DETEMIR 100 UNIT/ML X5UNITS SUBQ SCH (10:13)
[2021-11-11] MEDS ORDERED: *HR* Warfarin 5 MG TABLET PO ONE (18:00)
== END 2021-11-11 15:40 | disposition home or self-care (01) | DRG 871 ==
LOC: 2NENU 21:34 → EMEROOARM 21:34 → SUATTDRO 11-08 12:52 → 2NENU 11-08 13:45
PROVIDERS: ADMIT Hospitalist; ATTEND Internal Medicine